=== PATIENT | female | born 1975 | race Caucasian/White ===

== ENCOUNTER 2019-04-23 12:39 | Emergency (ER) | payer OTHER ==
[~2019-04-23] VITALS: Ht 162.6 cm; Wt 66.7 kg
== END 2019-04-23 13:55 | disposition home or self-care (01) ==
LOC: ER 12:39
DX: I10 Essential (primary) hypertension (principal)

== ENCOUNTER 2019-05-02 07:34 | Outpatient (CLI) | payer OTHER | END 2019-05-02 13:50 | disposition home or self-care (01) | LOC: RAD 07:34 | DX: R03.0 Elevated blood-pressure reading, without diagnosis of hypertension (principal); R05 Cough ==

== ENCOUNTER 2024-09-28 23:15 | Emergency (ER) | payer OTHER ==
[~2024-09-28] VITALS: Ht 162.6 cm; Wt 56.7 kg
[2024-09-29] MEDS ORDERED: METHYLPREDNISOLONE SOD SUCC 125 MG VIAL IM STA (00:42)
[2024-09-29] MEDS ORDERED: METHYLPREDNISOLONE SOD SUCC 125 MG VIAL IV STA (00:42)
[2024-09-29] MEDS ORDERED: FAMOtidine 10 MG/ML (4ML VIAL) IV PUSH STA (00:44)
[2024-09-29] MEDS ORDERED: EPINEPHRINE HCL/PF 1 MG/ML AMPUL SUBCUTANEO STA (00:44)
[2024-09-29] MEDS ORDERED: hydrOXYzine PAMOATE 25 MG CAPSULE PO STA (00:45)
[2024-09-29] MEDS ORDERED: EPINEPHRINE HCL/PF 1 MG/ML AMPUL ONE (00:54)
[2024-09-29] MEDS ORDERED: METHYLPREDNISOLONE SOD SUCC 125 MG VIAL ONE (00:55)
[2024-09-29] MEDS ORDERED: FAMOTIDINE/PF 20 MG/2 ML VIAL ONE (00:55)
[2024-09-29] MEDS ORDERED: hydrOXYzine PAMOATE 25 MG CAPSULE PO ONE (00:55)
== END 2024-09-29 03:28 | disposition home or self-care (01) ==
LOC: ER 23:15
DX: R21 Rash and other nonspecific skin eruption (principal); T78.3XXA Angioneurotic edema, initial encounter; Z91.013 Allergy to seafood